=== PATIENT | female | born 2000 | race Caucasian/White ===

== ENCOUNTER 2023-05-08 15:20 | Emergency (ER) | payer MEDICAID, SELFPAY ==
[2023-05-08 16:04] VITALS: BP 121/85; PULSE 74; RESP 16; TEMP 36.7; O2SAT 97; BMI 14.8
[2023-05-08 16:50] VITALS: BP 113/67; PULSE 72; RESP 16; O2SAT 94
[2023-05-08 17:01] LABS: Basophils # 0.1 10^3/uL (0.0-0.1); Basophils % 0.6 %; Hematocrit 41.4 % (37.0-47.0); Mean Corpuscular HGB Conc 33.8 g/dL (30.0-36.0); Mean Corpuscular Hemoglobin 29.7 pg (28.0-34.0); Mean Corpuscular Volume 87.7 fl (81-99); Mean Platelet Volume 10.4 fL (7.4-10.4); Monocytes # 0.2 10^3/uL (0.2-0.9); Monocytes % 2.1 %; Neutrophils # 7.64 10^3/uL (1.8-7.7); Neutrophils % 86.2 %; Nucleated Red Blood Cells % 0 %; Platelet Count 281 10^3/cmm (130-400); Red Blood Count 4.72 10^6/uL (4.1-5.3); Red Cell Distribution Width 11.2 % (12.1-15.1); White Blood Count 8.9 10^3/uL (4.0-10.0)
--- NOTE | 2023-05-08 17:16 | W.ED.ABDPA2 ---
HPI - Abdominal Pain General: Chief Complaint: Abdominal Pain Stated Complaint: n/v Time Seen by Provider: 05/08/23 16:32 History of Present Illness: Patient presents to the ER with complaints of nausea vomiting abdominal pain for the last 2 days. Patient is not currently vomiting at this time. Patient has done this multiple times. And goes downhill really quickly. Patient does not have much reserve. Patient does not talk or answer questions and all the history was obtained from her father. Patient does have thyroid issues and she is undergoing diagnosis and treatment for them. Review of Systems General: Reports: 10 or more systems reviewed and unremarkable except in HPI and below PFSH ED PFSH: Family History Denies family history of Diabetes Cancer Hypertension Stroke Social History Smoking and tobacco status: never smoked Physical Exam Const: COMMON NORMALS: no acute distress, average body habitus, patient oriented x3, no limitations, healthy appearing, alert and well nourished HENMT: COMMON NORMALS: normocephalic, atraumatic, hearing grossly normal bilaterally, external ears normal, Normal external nose present and moist oral mucous membranes HEAD & SCALP: normocephalic and atraumatic NOSE: Normal external nose present EXTERNAL EAR: Yes external ears normal Eye: COMMON NORMALS: Equal, round and reactive pupils present, EOMs intact bilaterally, conjunctivae normal and no scleral icterus CONJUNCTIVA: Yes conjunctivae normal PUPIL: Yes Equal, round and reactive pupils present Neck/C-Spine: COMMON NORMALS: full ROM, no lymphadenopathy, supple, no meningeal signs, no JVD and Thyroid normal THYROID: Thyroid normal Chest: COMMONS NORMALS: normal inspection of the chest and normal palpation of entire chest wall Resp: COMMON NORMALS: normal respiratory effort, No retractions, No use of accessory muscles and clear to auscultation bilaterally AUSCULTATION: clear to auscultation bilaterally Cardio: COMMON NORMALS: no JVD, regular rate, regular rhythm, S1 normal heart sound present, S2 normal heart sound present, No gallops present (Cardio), No clicks present (Cardio), No murmurs present (Cardio) and No rub (Cardio) RATE: regular rate RHYTHM: regular rhythm HEART SOUNDS: S1 normal heart sound present and S2 normal heart sound present GI: COMMON NORMALS: Normal to inspection, nondistended, normoactive bowel sounds present, Soft to palpation, non-tender, No hepatosplenomegaly present and no masses PALPATION: Yes Soft to palpation and Yes No hepatosplenomegaly present Neuro: COMMON NORMALS: patient oriented x3 SENSORIUM/ORIENTATION: Yes alert MENINGEAL SIGNS: Yes no meningeal signs Course Vital Signs: Vital signs: Vital Signs Temperature 98.0 F 05/08/23 16:04 Pulse Rate 83 05/08/23 18:26 Respiratory Rate 16 05/08/23 18:26 Blood Pressure 105/77 05/08/23 18:26 Pulse Oximetry 98 05/08/23 18:26 Oxygen Delivery Me thod Room Air 05/08/23 18:26 MDM - Abdominal Pain Medical Decision Making Presents to the ER with complaints of nausea vomiting for 2 days. Patient gets this every so often. Patient was given a liter of fluid and 4 Zofran while waiting for lab work to come back which was essentially benign. Much better and is ready to go home. Patient be discharged home to follow-up with her PCP on an as-needed basis. Differential Diagnosis Likely abdominal pain and gastroenteritis; Unlikely acute appendicitis, calculus of kidney, constipation, diverticulitis, endometriosis, pancreatitis or small bowel obstruction Medical Records I reviewed the patient's medical records. Lab Data I reviewed the patient's lab results. 05/08/23 16:54 05/08/23 16:54 Labs/Radiology: Laboratory Results WBC 8.9 10^3/uL (4.0-10.0) 05/08/23 16:54 RBC 4.72 10^6/uL (4.1-5.3) 05/08/23 16:54 Hgb 14.0 g/dL (11.5-15.3) 05/08/23 16:54 Hct 41.4 % (37.0-47.0) 05/08/23 16:54 MCV 87.7 fl (81-99) 05/08/23 16:54 MCH 29.7 pg (28.0-34.0) 05/08/23 16:54 MCHC 33.8 g/dL (30.0-36.0) 05/08/23 16:54 RDW 11.2 % (12.1-15.1) L 05/08/23 16:54 Plt Count 281 10^3/cmm (130-400) 05/08/23 16:54 MPV 10.4 fL (7.4-10.4) 05/08/23 16:54 Neut % (Auto) 86.2 % 05/08/23 16:54 Lymph % (Auto) 11.0 % 05/08/23 16:54 [place] % (Auto) 2.1 % 05/08/23 16:54 Eos % (Auto) 0.0 % 05/08/23 16:54 Baso % (Auto) 0.6 % 05/08/23 16:54 Neut # (Auto) 7.64 10^3/uL (1.8-7.7) 05/08/23 16:54 Lymph # (Auto) 1.0 10^3/uL (0.8-4.8) 05/08/23 16:54 [place] # (Auto) 0.2 10^3/uL (0.2-0.9) 05/08/23 16:54 Eos # (Auto) 0.0 10^3/uL (0.0-0.8) 05/08/23 16:54 Baso # (Auto) 0.1 10^3/uL (0.0-0.1) 05/08/23 16:54 Nucleated RBC % (auto) 0 % 05/08/23 16:54 Nucleated RBCs # 0.0 /100WBC 05/08/23 16:54 Sodium 133 mmol/L (136-145) L 05/08/23 16:54 Potassium 3.6 mmol/L (3.5-5.1) 05/08/23 16:54 Chloride 100 mmol/L (98-107) 05/08/23 16:54 Carbon Dioxide 25 mmol/L (22-29) 05/08/23 16:54 Anion Gap 11.6 (5-19) 05/08/23 16:54 BUN 6 mg/dL (6-20) 05/08/23 16:54 Creatinine 0.8 mg/dL (0.5-0.9) 05/08/23 16:54 GFR Calculation 89.7 mL/min (90-130) L 05/08/23 16:54 Glucose 98 mg/dL (65-115) 05/08/23 16:54 Calculated Osmolality 274 mOsm/kg (285-295) L 05/08/23 16:54 Calcium 9.0 mg/dL (8.5-10.5) 05/08/23 16:54 Magnesium 2.1 mg/dL (1.7-2.3) 05/08/23 16:54 Total Bilirubin 0.3 mg/dL (0.15-1.2) 05/08/23 16:54 AST 14 U/L (0-32) 05/08/23 16:54 ALT 10 U/L (0-33) 05/08/23 16:54 Alkaline Phosphatase 67 U/L (35-105) 05/08/23 16:54 Total Protein 7.4 g/dL (6.6-8.7) 05/08/23 16:54 Albumin 4.5 g/dL (3.5-5.2) 05/08/23 16:54 Globulin 2.9 g/dL (1.3-4.6) 05/08/23 16:54 Lipase 19 U/L (13-60) 05/08/23 16:54 Discharge Plan Discharge Patient Disposition: Home Clinical Impression: Acute nausea with nonbilious vomiting Condition: Stable Prescriptions: No Action levothyroxine [Synthroid] 25 mcg tablet 25 mcg PO DAILY Discharge Orders: Discharge ED (Routine); Ordered 05/08/23 Ordered By: Danny Herrera Referrals: Melissa Cameron MD [Primary Care Provider] - 1 week Patient Instructions: Acute Nausea and Vomiting (ED) Activity Restrictions/Additional Instructions: Please start off with clear liquids and advance diet slowly as tolerated. Please follow-up with family practice doctor in approximately 1 week or sooner as needed. Coding Level of Care Code ED Skirt Maker for Kathie Cook
[2023-05-08] MEDS: sodium chloride 0.9% 1,000 ML 999 ML IV (17:20)
[2023-05-08] MEDS: ondansetron 2 mg/ML SDV 2 mL 4 MG IVP (17:20)
[2023-05-08 17:26] LABS: Alanine Aminotransferase 10 U/L (0-33); Albumin Level 4.5 g/dL (3.5-5.2); Alkaline Phosphatase 67 U/L (35-105); Anion Gap 11.6 (5-19); Aspartate Amino Transferase 14 U/L (0-32); Blood Urea Nitrogen 6 mg/dL (6-20); Carbon Dioxide 25 mmol/L (22-29); Chloride 100 mmol/L (98-107); Globulin 2.9 g/dL (1.3-4.6); Glomerular Filtration Rate 89.7 mL/min (90-130); Glucose 98 mg/dL (65-115); Lipase 19 U/L (13-60); Magnesium 2.1 mg/dL (1.7-2.3); Osmolality Calculated 274 mOsm/kg (285-295); Potassium 3.6 mmol/L (3.5-5.1); Sodium 133 mmol/L (136-145); Total Bilirubin 0.3 mg/dL (0.15-1.2); Total Protein 7.4 g/dL (6.6-8.7)
[2023-05-08 18:26] VITALS: BP 105/77; PULSE 83; RESP 16; O2SAT 98
== END 2023-05-08 19:14 | disposition home or self-care (01) ==
PROVIDERS: Emergency Provider Emergency Medicine; PCP Family Medicine
DX: R11.2 Nausea with vomiting, unspecified (principal)
CPT/HCPCS: 36415; 80053; 83690; 83735; 85025; 96374; 99284; J2405; J7030

== ENCOUNTER 2023-06-23 15:34 | Outpatient (CLI) | payer MEDICAID, SELFPAY ==
--- NOTE | 2023-06-23 16:00 | MR_ITS ---
WS: [id number] MR CERVICAL SPINE WO/W DATE OF EXAMINATION: 06/22/2023 COMPARISON: None. HISTORY: Epilepsy neck pain TECHNIQUE: Sagittal T1, T2 and T2 inversion recovery; axial T2, T2 gradient and fiesta. Post gadolini um imaging with fat saturation technique. FINDINGS:Straightening with slight reversal normal cervical lordosis. No high grade central canal lennox rowing. Cord signal is normal. No abnormal gadolinium enhancement C2-3: Mild left eccentric disc osteophytic ridging. Mild left foraminal narrowing. Spinal canal and r ight foramen are patent. C3-4: Left eccentric disc osteophytic ridging. Mild left foraminal narrowing. Moderate facet arthropa thy. C4-5: Mild left eccentric disc osteophytic ridging. Mild left foraminal narrowing. Moderate facet art hropathy. C5-6: Tiny central disc protrusion. Mild disc osteophytic ridging. Mild left bony foraminal narrowing . Spinal canal is patent. C6-7: Mild left bony foraminal narrowing. Moderate facet arthropathy. C7-T1: Spinal canal and foramen are patent. IMPRESSION: 1. Straightening with slight reversal of the normal cervical lordosis. No high-grade central canal narrowing. Cord signal is normal. 2. Small shallow central protrusion at C5-C6 with slight effacement of the ventral thecal sac. Mild left bony foraminal narrowing at this level. 3. Mild left bony foraminal narrowing at left C2-3, left C3-4, left C4-5, left C5-6, and left C6-7.
[2023-06-23] MEDS: gadobenate dimeglumine 20 mL vial IV (16:43)
== END 2023-06-23 15:35 | disposition home or self-care (01) ==
LOC: RAD 15:34
PROVIDERS: PCP Family Medicine; Visit Provider Specialist
DX: R29.90 Unspecified symptoms and signs involving the nervous system (principal); Z82.0 Family history of epilepsy and other diseases of the nervous system; M50.222 Other cervical disc displacement at C5-C6 level; M48.02 Spinal stenosis, cervical region; G40.909 Epilepsy, unspecified, not intractable, without status epilepticus
CPT/HCPCS: 72156; A9577

== ENCOUNTER 2023-07-06 08:30 | Outpatient (CLI) | payer MEDICAID, SELFPAY ==
--- NOTE | 2023-07-06 08:45 | MR_ITS ---
WS: [id number] MRI HEAD WITH CONTRAST TECHNIQUE: Sagittal T1, T2 axial, T2 axial FLAIR, axial susceptibility weighted imaging, axial diffus ion weighted images, and coronal T2 images were obtained. Pre and post-T1 axial and post T1 coronal i mages. ADC and FSPGR images. CLINICAL INFORMATION: Z82.0 - Family history of epilepsy and other diseases of ... COMPARISON: None. FINDINGS: No evidence of restricted diffusion to suggest acute ischemia. Ventricular system and basal cisterns are patent. Few patchy supratentorial periventricular white matter changes more prominent about the L EFT lateral ventricle and LEFT occipital horn. Normal posterior fossa. Normal vascular flow voids at the skull base. No extra-axial fluid collections. No evidence of mass or mass effect. Paranasal sinuses and mastoid air cells are well aerated. Normal posterior nasopharynx and parapharyn geal fat. No hemosiderin on the susceptibility weighted images. Normal optic chiasm and pituitary inf undibulum. Temporal lobes hippocampal formations are normal in appearance. Normal optic chiasm and pi tuitary infundibulum. No signal abnormalities in the mesial temporal lobes. No abnormal gadolinium enhancement. No enhancing intracranial lesions. Tiny incidental 2.5 mm pituita ry cyst or Rathke's cleft cyst at the infundibular insertion. No other suspicious findings. IMPRESSION: 1. No evidence of restricted diffusion to suggest acute ischemia. 2. Minimal patchy periventricular white matter changes more prominent on the LEFT nonspecific in a p atient this age but can be seen with hypertension, diabetes, migraine headaches. 3. No abnormal gadolinium enhancement. 4. No hemosiderin on the susceptibility weighted images. 5. Temporal lobes and hippocampal formations are normal in appearance. 6. Tiny incidental 2.5 mm pituitary cyst or Rathke's cleft cyst at the infundibular insertion. 7. No other suspicious findings.
[2023-07-06] MEDS: gadobenate dimeglumine 20 mL vial IV (10:00)
== END 2023-07-06 08:31 | disposition home or self-care (01) ==
PROVIDERS: PCP Family Medicine; Visit Provider Specialist
DX: R29.90 Unspecified symptoms and signs involving the nervous system (principal); Z82.0 Family history of epilepsy and other diseases of the nervous system
CPT/HCPCS: 70553; A9577

== ENCOUNTER → 2023-08-04 09:15 | Outpatient (BNVA) | payer MEDICAID, SELFPAY | PROVIDERS: PCP Family Medicine; Referring Provider Psychiatry & Neurology Neurology; Visit Provider Internal Medicine | DX: E03.9 Hypothyroidism, unspecified (principal); R13.10 Dysphagia, unspecified; R29.90 Unspecified symptoms and signs involving the nervous system; Z82.0 Family history of epilepsy and other diseases of the nervous system; Z79.899 Other long term (current) drug therapy | CPT/HCPCS: 36415; 82306; 82607; 82746; 83735; 83921; 84207; 84425; 84439; 84443; 86376; 86800 ==

== ENCOUNTER 2023-09-07 14:46 | Emergency (ER) | payer MEDICAID, SELFPAY ==
[2023-09-07 15:00] VITALS: BP 107/74; PULSE 75; RESP 18; TEMP 36.4; O2SAT 100; BMI 14.6
--- NOTE | 2023-09-07 17:01 | ED_ITS ---
HPI - Neck Pain/Injury General: Chief Complaint: Neck Pain/Injury Stated Complaint: neck pain Time Seen by Provider: 09/07/23 16:41 Source: patient Mode of arrival: ambulatory History of Present Illness: 23-year-old female comes in complaining of right anterior neck pain. This been going on for several years she had multiple work-ups by primary care and neurology orthopedics and now has an upcoming work-up with endocrinology. She has history of hypothyroidism she is on Synthroid no recent change in medications no recent trauma or pain. Localizes pain at the level of the larynx on the right side. She has full range of motion her neck does not seem to aggravate it. Father is with the patient in the room states it was causing significantly more pain earlier today. No radiation of the pain into the head or into the upper extremities. MD complaint: neck pain Onset (ago): year(s) Place: home Quality: sharp Duration: intermittent Relieving factors: none Exacerbating factors: none Associated symptoms: Denies dysphagia, difficulty walking, dizziness, fevers/chills, headache(s), nausea, swollen glands, tingling or weakness Review of Systems Const: Denies: fever(s) or chills Card: Denies: chest pain Resp: Denies: dyspnea GI: Denies: nausea or dysphagia Musc: Denies: neck pain or back pain Skin/Breast: Denies: rash Neuro: Denies: headache(s), difficulty walking or dizziness PFSH ED PFSH: Medical History History of esophageal stricture Hypothyroidism Surgical History No history of previous surgery Family History Mother [place]'s chorea Denies family history of Diabetes Cancer Hypertension Stroke Social History Smoking and tobacco/nicotine status: never used tobacco/nicotine Alcohol intake: never Substance/Drug Use: never Household members: family Marital status: Single Number of children: 0 Current occupational status: unemployed Leisure activites: games Snow/Worship: Religion Special snow needs: No Agree to transfusion: Yes Physical Exam Const: COMMON NORMALS: no acute distress GENERAL APPEARANCE: cooperative and comfortable ORIENTATION/CONSCIOUSNESS: Yes awake, Yes oriented to person, Yes oriented to place and Yes oriented to time HENMT: COMMON NORMALS: normocephalic, atraumatic and hearing grossly normal bilaterally HEAD & SCALP: normocephalic and atraumatic Resp: COMMON NORMALS: normal respiratory effort, No retractions, No use of accessory muscles and clear to auscultation bilaterally AUSCULTATION: clear to auscultation bilaterally Cardio: COMMON NORMALS: regular rate, regular rhythm and No murmurs present (Cardio) RATE: regular rate RHYTHM: regular rhythm Extremity: COMMON NORMALS: normal to inspection, capillary refill normal, no clubbing, cyanosis or edema, no calf tenderness and no pedal edema Neuro: SENSORIUM/ORIENTATION: Yes oriented to person, Yes oriented to place and Yes oriented to time Skin: COMMON NORMALS: no rashes or lesions noted GENERAL SKIN EXAM: no rashes or lesions noted Course Vital Signs: Vital signs: Vital Signs Temperature 97.6 F 09/07/23 15:00 Pulse Rate 75 09/07/23 15:00 Respiratory Rate 18 09/07/23 15:00 Blood Pressure 107/74 09/07/23 15:00 Pulse Oximetry 100 09/07/23 15:00 Oxygen Delivery Me thod Room Air 09/07/23 15:00 MDM - Neck Pain/Injury Medical Decision Making Unable to reproduce pain with range of motion or palpation she has no stridor no injury. Cervical spine clears clinically at the bedside. Discharge patient home with diclofenac to use as needed. Follow-up with primary care or other work-ups as are pending. Medical Records I reviewed the patient's medical records. Lab Data I reviewed the patient's lab results. No radiology studies performed this visit Discharge Plan Discharge Patient Disposition: Home Clinical Impression: Neck pain Condition: Stable Prescriptions: New diclofenac sodium 75 mg tablet,delayed release (DR/EC) 75 mg PO Q12H PRN (Reason: pain) Qty: 20 0RF No Action levothyroxine [Synthroid] 25 mcg tablet 25 mcg PO DAILY Qty: 90 0RF Discharge Orders: Discharge ED (Routine); Ordered 09/07/23 Ordered By: Isrrael Hendrickson Referrals: Melissa Cameron MD [Primary Care Provider] - Discharge Diet: Usual diet Discharge Activity: Increase activity as tolerated Patient Instructions: Opioid Safety, Pain Management Activity Restrictions/Additional Instructions: Thank you for choosing [facility] for your healthcare needs today. Please realize this is an emergency room and that we are providing you with a medical screening exam and this may not be complete and all inclusive of all the testing and or work up that you may need to determine your ailment or severity of your illness. It is very important that you follow up as instructed or that you return to the Emergency Department should you have concerns or if your condition changes or worsens in any way. Follow-up with other outpatient testing as previously scheduled. Coding Level of Care Code ED Echocardiography Radiology Technologist for Kathie Cook
[2023-09-07] MEDS: dexamethasone 10 mg/mL INJ IM (17:16)
[2023-09-07] MEDS: ketorolac 30 mg/mL INJ IM (17:17)
== END 2023-09-07 17:42 | disposition home or self-care (01) ==
PROVIDERS: Emergency Provider Family Medicine; PCP Family Medicine
DX: M54.2 Cervicalgia (principal)
CPT/HCPCS: 96372; 99284; J1100; J1885

== ENCOUNTER 2023-09-10 16:27 | Outpatient (CLI) | payer MEDICAID, SELFPAY ==
--- NOTE | 2023-09-10 17:00 | USR_ITS ---
PROCEDURE INFORMATION: Exam: US Soft Tissue Head and Neck, Thyroid Exam date and time: 09/10/2023 5:14 PM Age: 23 years old Clinical indication: Dysphagia / difficulty swallowing; Additional info: Hypothyroidism dysphagia TECHNIQUE: Imaging protocol: Real-time ultrasound scan of the neck with image documentation. Exam focused on the thyroid. COMPARISON: MR cervical spine wo/w [id number] 06/23/2023 4:07 PM FINDINGS: Right thyroid lobe: Normal size and echotexture without hyperemia or nodule, measuring 1.2 x 0.9 x 3.3 cm. Left thyroid lobe: Normal size and echotexture without hyperemia or nodule, measuring 1.1 x 0.8 x 2.4 cm. Isthmus: No nodules. Measures 0.2 cm in thickness. US/US thyroid [id number] IMPRESSION: Unremarkable thyroid.
== END 2023-09-10 16:28 | disposition home or self-care (01) ==
PROVIDERS: PCP Family Medicine; Visit Provider Internal Medicine
DX: E03.9 Hypothyroidism, unspecified (principal); R13.10 Dysphagia, unspecified
CPT/HCPCS: 76536

== ENCOUNTER 2024-02-23 05:36 | Day surgery (SDC) | payer MEDICAID, SELFPAY ==
[2024-02-23 06:10] VITALS: BP 114/70; PULSE 77; RESP 18; TEMP 36.7; O2SAT 99; BMI 15.5
[2024-02-23] MEDS: sodium chloride 0.9% 1,000 ML 30 ML IV (06:25)
--- NOTE | 2024-02-23 06:45 | ANES.PREANE2 ---
Pre-Anesthetic Assessment Height/Weight: Height 1.57 m Weight 38.555 kg Temp Pulse Resp BP Pulse Ox O2 Del Method 98.1 F 77 18 114/70 99 Room Air 02/23/24 06:10 02/23/24 06:10 02/23/24 06:10 02/23/24 06:10 02/23/24 06:10 02/23/24 06:10 Preop Diagnosis: dysphagia Operation Date: 02/23/24 07:00 Proposed Procedures p [id number] egd w/sarika R13.10(Not Applicable) - Jose Miguel Ryan, DO Was Beta Phillip taken within 24 hours: N/A Was Clonidine taken within 24 hours: N/A Last intake: Intake Last Liquid Date 02/22/24 Last Liquid Time 22:00 Last Solid Date 02/22/24 Last Solid Time 22:00 Social No alcohol and No tobacco Exam alert, oriented x 3, clear to auscultation bilaterally and regular rate & rhythm Airway Submandibular: within normal limits Cervical ROM: within normal limits Mallampati: Class II History/ROS No significant history except as noted and No significant complaints Pulmonary None reported CV/HEM None reported None reported Hepatic None reported GI None reported no reflux Metabolic Thyroid Disease Musc/skel Lower Back Pain upper nad lower back pain, full ROM Neuropsych huntingtons disease Anesthetic Plan ASA status: 2 Anesthesia: MAC Risk of > 500 ml blood loss (7ml/kg in children): Yes, adequate IV access and fluids planned Medications/Allergies Home Medications Medication Instructions Recorded Confirmed Last Taken Type levothyroxine 25 mcg tablet 25 mcg PO DAILY 02/23/24 02/23/24 02/23/24 History (Synthroid) Allergies Allergy/AdvReac Type Severity Reaction Status Date / Time No Known Allergies Allergy Verified 02/23/24 06:08 Current Medications Generic Name Dose Route Start Last Admin Trade Name Freq PRN Reason Stop Dose Admin Sodium Chloride 1,000 mls @ 30 mls/hr 02/23/24 06:00 02/23/24 06:25 Sodium Chloride 0.9% IV 02/24/24 05:59 30 mls/hr .Q24H GOSIA Administration PFSH Anesthesia Medical History Depressed Family history of [place]'s disease Hypothyroidism History of esophageal stricture Surgical History No history of previous surgery Family History Mother Nican[place]'s chorea Denies family history of Diabetes Cancer Hypertension Stroke Social History Smoking and tobacco/nicotine status: never used tobacco/nicotine Alcohol intake: never Substance/Drug Use: never Household members: family Marital status: Single Number of children: 0 Current occupational status: unemployed Leisure activites: [employer] Snow/Mormonism: Voodoo Special snow needs: No Agree to transfusion: Yes Data Anesthesia Cardiac Studies: No Data to Display
[2024-02-23 06:50] LABS: HCG, Serum Qual Negative (Negative)
--- NOTE | 2024-02-23 07:05 | P.HP_ITS ---
Providers/Chief Complaint Primary Care Provider: Melissa Cameron MD Chief Complaint: R13.10 History of Present Illness Leslie Smith is a 23 year old female Review of Systems General: Reports: 10 or more systems reviewed and unremarkable except in HPI and below Medications/Allergies Home Medications Medication Instructions Recorded Confirmed Last Taken Type levothyroxine 25 mcg tablet 25 mcg PO DAILY 02/23/24 02/23/24 02/23/24 History (Synthroid) Allergies Allergy/AdvReac Type Severity Reaction Status Date / Time No Known Allergies Allergy Verified 02/23/24 06:08 PFSH Acute PFSH: Medical History Depressed Family history of [place]'s disease Hypothyroidism History of esophageal stricture Surgical History No history of previous surgery Family History Mother [place]'s chorea Denies family history of Diabetes Cancer Hypertension Stroke Social History Smoking and tobacco/nicotine status: never used tobacco/nicotine Alcohol intake: never Substance/Drug Use: never Household members: family Marital status: Single Number of children: 0 Current occupational status: unemployed Leisure activites: [employer] Snow/Scientology: Mormon Special snow needs: No Agree to transfusion: Yes Vitals/I&O/Wt Last Vital Signs Temp 98.1 F 02/23/24 06:10 Pulse 77 02/23/24 06:10 Resp 18 02/23/24 06:10 BP 114/70 02/23/24 06:10 Pulse Ox 99 02/23/24 06:10 O2 Del Method Room Air 02/23/24 06:10 Weight last 48 hrs Weight 85 lb A&P Assessment and plan (1) Dysphagia: Plan EGD with possible balloon dilation Attestations Medical Necessity Statement*: Home Coding Level of Care Code Acute Code for Chg Fwd Diagnoses Dysphagia R13.10
[2024-02-23 07:23] VITALS: BP 91/49; PULSE 78; RESP 14; TEMP 36.3; O2SAT 94
[2024-02-23 07:48] VITALS: BP 95/66; PULSE 73; RESP 16; O2SAT 100
--- NOTE | 2024-02-23 14:02 | ANE.PACU2 ---
Inpatient post-anesthesia follow up: Vital signs: Temperature 97.3 F Pulse Rate 73 Respiratory Rate 16 Blood Pressure 95/66 Pulse Oximetry 100 Oxygen Delivery Me thod Room Air Oxygen Flow Rate 2 Fraction of Inspir ed Oxygen Hydration adequate: Yes Nausea and vomiting: No Mental status: Baseline Additional Comments: no apparent anesthetic complications noted
== END 2024-02-23 08:10 | disposition home or self-care (01) ==
PROVIDERS: Anesthesiology; PCP Family Medicine; Visit Provider Surgery
DX: R13.10 Dysphagia, unspecified (principal); E03.9 Hypothyroidism, unspecified; Z87.19 Personal history of other diseases of the digestive system
CPT/HCPCS: 36415; 43239; 43249; 84703; 88305; J2704; J3010; J7030

== ENCOUNTER 2024-06-16 05:16 | Emergency (ER) | payer MEDICAID, SELFPAY ==
[2024-06-16] VITALS (7 sets, daily range): BP systolic 91–112; BP diastolic 61–87; PULSE 61–86; RESP 16; TEMP 36.7; O2SAT 97–100; BMI 15.5
--- NOTE | 2024-06-16 05:24 | XRR_ITS ---
PROCEDURE INFORMATION: Exam: XR Abdomen Exam date and time: 06/16/2024 6:32 AM Age: 24 years old Clinical indication: Abdominal pain; Localized; Left lower quadrant (llq); Additional info: Llq abd pain, HX of constipation TECHNIQUE: Imaging protocol: Radiologic exam of the abdomen. Views: Frontal supine view of the abdomen. 1 View. COMPARISON: No relevant prior studies available. FINDINGS: Gastrointestinal tract: [id number] colonic stool burden. 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 Hypoplastic T12 ribs are noted. XR/XR abdomen 1V* [id number] IMPRESSION: No acute findings with the above details.
--- NOTE | 2024-06-16 05:28 | ED_ITS ---
Documented by User: Danny Herrera DO 06/16/24 05:31 HPI - Abdominal Pain 2 General: Chief Complaint: Abdominal Pain Stated Complaint: low left abd pain n/v dizzy 2+days Time Seen by Provider: 06/16/24 05:20 History of Present Illness: Patient presents to the ER with a history of about a 2-day history of left lower quadrant abdominal pain. This has caused some nausea and vomiting. Patient denies any fevers or abdominal surgical history. Patient does have a history of constipation and cannot tell us when that her last bowel movement was. Patient is very quiet dad does most of the talking. Review of Systems 2 General: Reports: 10 or more systems reviewed and unremarkable except in HPI and below PFSH ED 2 PFSH: Medical History Depressed Family history of Nicanor's disease Hypothyroidism History of esophageal stricture Surgical History No history of previous surgery Family History Mother [place]'s chorea Denies family history of Diabetes Cancer Hypertension Stroke Social History Smoking and tobacco/nicotine status: never used tobacco/nicotine Alcohol intake: never Substance/Drug Use: never Household members: family Marital status: Single Number of children: 0 Current occupational status: unemployed Leisure activites: uniRow Snow/Faith: Holiness Special snow needs: No Agree to transfusion: Yes Physical Exam 2 Const: COMMON NORMALS: no acute distress, average body habitus, patient oriented x3, no limitations, healthy appearing, alert and well nourished HENMT: COMMON NORMALS: normocephalic, atraumatic, hearing grossly normal bilaterally, external ears normal, Normal external nose present and moist oral mucous membranes HEAD & SCALP: normocephalic and atraumatic NOSE: Normal external nose present EXTERNAL EAR: Yes external ears normal Neck/C-Spine: COMMON NORMALS: no JVD Chest: COMMONS NORMALS: normal inspection of the chest and normal palpation of entire chest wall Resp: COMMON NORMALS: normal respiratory effort, No retractions, No use of accessory muscles and clear to auscultation bilaterally AUSCULTATION: clear to auscultation bilaterally Cardio: COMMON NORMALS: no JVD, regular rate, regular rhythm, S1 normal heart sound present, S2 normal heart sound present, No gallops present (Cardio), No clicks present (Cardio), No murmurs present (Cardio) and No rub (Cardio) R ATE: regular rate RHYTHM: regular rhythm HEART SOUNDS: S1 normal heart sound present and S2 normal heart sound present GI: COMMON NORMALS: Normal to inspection, nondistended, normoactive bowel sounds present, Soft to palpation, No hepatosplenomegaly present and no masses; negative for non-tender (Tender to palpate over left lower quadrant,) P ALPATION: Yes Soft to palpation and Yes No hepatosplenomegaly present OTHER: No rebound guarding or rigidity Neuro: COMMON NORMALS: patient oriented x3 SENSORIUM/ORIENTATION: Yes alert Course 2 Vital Signs: Vital signs: Vital Signs Temperature 98.1 F 06/16/24 05:21 Pulse Rate 61 06/16/24 06:24 Respiratory Rate 16 06/16/24 05:21 Blood Pressure 99/73 06/16/24 08:00 Pulse Oximetry 100 06/16/24 09:00 Oxygen Delivery Me thod Room Air 06/16/24 06:24 MDM - Abdominal Pain Differential Diagnosis Likely abdominal pain and constipation Lab Data I reviewed the patient's lab results. 06/16/24 05:58 06/16/24 05:58 Labs/Radiology: Radiology Impressions Abdomen X-Ray 06/16/24 05:24 IMPRESSION: No acute findings with the above details. Abdomen/Pelvis CT 06/16/24 08:04 IMPRESSION: 1. No acute findings. 2. Moderate to severe colonic stool burden with fecalization of small bowel which can be seen in slow transit. Laboratory Results WBC 10.06 10^3/uL (3.29-11.43) 06/16/24 05:58 RBC 4.80 10^6/uL (3.85-5.65) 06/16/24 05:58 Hgb 14.30 g/dL (11.27-16.99) 06/16/24 05:58 Hct 43.7 % (36-47) 06/16/24 05:58 MCV 91.0 fl (85-98) 06/16/24 05:58 MCH 29.8 pg (27-33) 06/16/24 05:58 MCHC 32.7 g/dL (30-55) 06/16/24 05:58 RDW 11.3 % (12.1-15.1) L 06/16/24 05:58 Plt Count 319 10^3/cmm (157-399) 06/16/24 05:58 MPV 10.6 fL (7.4-10.4) H 06/16/24 05:58 Neut % (Auto) 82.8 % 06/16/24 05:58 Lymph % (Auto) 12.9 % 06/16/24 05:58 Holt % (Auto) 3.1 % 06/16/24 05:58 Eos % (Auto) 0.4 % 06/16/24 05:58 Baso % (Auto) 0.6 % 06/16/24 05:58 Neut # (Auto) 8.33 10^3/uL (1.8-7.7) H 06/16/24 05:58 Lymph # (Auto) 1.3 10^3/uL (0.8-4.8) 06/16/24 05:58 Holt # (Auto) 0.3 10^3/uL (0.2-0.9) 06/16/24 05:58 Eos # (Auto) 0.0 10^3/uL (0.0-0.8) 06/16/24 05:58 Baso # (Auto) 0.1 10^3/uL (0.0-0.1) 06/16/24 05:58 Nucleated RBC % (auto) 0 % 06/16/24 05:58 Nucleated RBCs # 0.0 /100WBC 06/16/24 05:58 Sodium 140 mmol/L (136-145) 06/16/24 05:58 Potassium 4.5 mmol/L (3.5-5.1) 06/16/24 05:58 Chloride 104 mmol/L (98-107) 06/16/24 05:58 Carbon Dioxide 23 mmol/L (22-29) 06/16/24 05:58 Anion Gap 17.5 (5-19) 06/16/24 05:58 BUN 12 mg/dL (6-20) 06/16/24 05:58 Creatinine 1.0 mg/dL (0.5-0.9) H 06/16/24 05:58 GFR Calculation 68.1 mL/min (90-130) L 06/16/24 05:58 Glucose 105 mg/dL (65-115) 06/16/24 05:58 Calculated Osmolality 290 mOsm/kg (285-295) 06/16/24 05:58 Calcium 8.9 mg/dL (8.5-10.5) 06/16/24 05:58 Magnesium 2.2 mg/dL (1.7-2.3) 06/16/24 05:58 Total Bilirubin 0.3 mg/dL (0.15-1.2) 06/16/24 05:58 AST 13 U/L (0-32) 06/16/24 05:58 ALT 9 U/L (0-33) 06/16/24 05:58 Alkaline Phosphatase 75 U/L (35-105) 06/16/24 05:58 Total Protein 7.8 g/dL (6.6-8.7) 06/16/24 05:58 Albumin 4.4 g/dL (3.5-5.2) 06/16/24 05:58 Globulin 3.4 g/dL (1.3-4.6) 06/16/24 05:58 HCG, Qual Negative (Negative) 06/16/24 05:50 Urine Color Dark yellow (Yellow) A 06/16/24 05:50 Urine Appearance Clear (CLEAR) 06/16/24 05:50 Urine pH 5.0 (5-7) 06/16/24 05:50 Ur Specific [place] 1.022 (1.005-1.030) 06/16/24 05:50 Urine Protein Trace (Negative) A 06/16/24 05:50 Urine Glucose (UA) Negative (Normal) 06/16/24 05:50 Urine Ketones Trace (Negative) 06/16/24 05:50 Urine Blood 3+ (Negative) A 06/16/24 05:50 Urine Nitrate Negative (Negative) 06/16/24 05:50 Urine Bilirubin Negative (Negative) 06/16/24 05:50 Urine Urobilinogen 1.0 mg/dL (Negative) 06/16/24 05:50 Ur Leukocyte Esterase Negative (Negative) 06/16/24 05:50 Urine RBC 6-10 /hpf (0-2) 06/16/24 05:50 Urine WBC 6-10 /hpf (0-5) 06/16/24 05:50 Ur Squamous Epith Cells 21-50 /hpf (0-5) 06/16/24 05:50 Amorphous Sediment Not Reportable 06/16/24 05:50 Urine Bacteria Trace /hpf (NONE) 06/16/24 05:50 Hyaline Casts 2.87 /lpf 06/16/24 05:50 All radiology interpretation(s) finalized by discharge Discharge Plan Discharge Patient Disposition: Home Clinical Impression: Constipation Condition: Stable Prescriptions: New Miralax 17 gram/dose powder 8.5 g PO BID Qty: 850 0RF Constulose 10 gram/15 mL solution 20 g PO Q2H 1 Days Qty: 360 0RF Rx Instructions: until desired laxative effect No Action Synthroid 25 mcg tablet 25 mcg PO DAILY Qty: 90 0RF Discharge Orders: Discharge ED (Routine); Ordered 06/16/24 Ordered By: Isrrael Hendrickson Referrals: Melissa Cameron MD [Primary Care Provider] - Discharge Diet: Usual diet Discharge Activity: Increase activity as tolerated Patient Instructions: Constipation (ED), Opioid Safety, Pain Management Activity Restrictions/Additional Instructions: Thank you for choosing [facility] for your healthcare needs today. It is very important that you follow up as instructed or that you return to the Emergency Department should you have concerns or if your condition changes or worsens in any way. Sign Out Sign Out Data: Patient Sign Out occurred on 06/16/24 at 06:24. Patient's care was discussed, and care was transferred from Danny Herrera DO to Isrrael Hendrickson DO. Coding Level of Care Code ED Washing Machine Repairer for Chg Fwd Documented by User: Isrrael Hendrickson DO 06/16/24 09:21 HPI - Abdominal Pain 2 General: Chief Complaint: Abdominal Pain Stated Complaint: low left abd pain n/v dizzy 2+days Time Seen by Provider: 06/16/24 05:20 PFSH ED 2 PFSH: Medical History Depressed Family history of [place]'s disease Hypothyroidism History of esophageal stricture Surgical History No history of previous surgery Family History Mother Nicanor's chorea Denies family history of Diabetes Cancer Hypertension Stroke Social History Smoking and tobacco/nicotine status: never used tobacco/nicotine Alcohol intake: never Substance/Drug Use: never Household members: family Marital status: Single Number of children: 0 Current occupational status: unemployed Leisure activites: [employer] Snow/Faith: Holiness Special snow needs: No Agree to transfusion: Yes Course 2 Vital Signs: Vital signs: Vital Signs Temperature 98.1 F 06/16/24 05:21 Pulse Rate 61 06/16/24 06:24 Respiratory Rate 16 06/16/24 05:21 Blood Pressure 99/73 06/16/24 08:00 Pulse Oximetry 100 06/16/24 09:00 Oxygen Delivery Me thod Room Air 06/16/24 06:24 MDM - Abdominal Pain Medical Decision Making Care assumed at change of shift on repeat exam has persistent left and left lower abdominal discomfort. Labs reviewed no leukocytosis no sign of cystitis her urine did show RBCs but pt is having menses. CT ordered showed fecalization in the small bowel. Discharge home with lactulose for immediate relief of constipation. MiraLAX is a half a capful twice a day to relieve long-term constipation issues and follow-up with primary care return if his further problems Lab Data 06/16/24 05:58 06/16/24 05:58 Labs/Radiology: Radiology Impressions Abdomen X-Ray 06/16/24 05:24 IMPRESSION: No acute findings with the above details. Abdomen/Pelvis CT 06/16/24 08:04 IMPRESSION: 1. No acute findings. 2. Moderate to severe colonic stool burden with fecalization of small bowel which can be seen in slow transit. Laboratory Results WBC 10.06 10^3/uL (3.29-11.43) 06/16/24 05:58 RBC 4.80 10^6/uL (3.85-5.65) 06/16/24 05:58 Hgb 14.30 g/dL (11.27-16.99) 06/16/24 05:58 Hct 43.7 % (36-47) 06/16/24 05:58 MCV 91.0 fl (85-98) 06/16/24 05:58 MCH 29.8 pg (27-33) 06/16/24 05:58 MCHC 32.7 g/dL (30-55) 06/16/24 05:58 RDW 11.3 % (12.1-15.1) L 06/16/24 05:58 Plt Count 319 10^3/cmm (157-399) 06/16/24 05:58 MPV 10.6 fL (7.4-10.4) H 06/16/24 05:58 Neut % (Auto) 82.8 % 06/16/24 05:58 Lymph % (Auto) 12.9 % 06/16/24 05:58 Holt % (Auto) 3.1 % 06/16/24 05:58 Eos % (Auto) 0.4 % 06/16/24 05:58 Baso % (Auto) 0.6 % 06/16/24 05:58 Neut # (Auto) 8.33 10^3/uL (1.8-7.7) H 06/16/24 05:58 Lymph # (Auto) 1.3 10^3/uL (0.8-4.8) 06/16/24 05:58 Holt # (Auto) 0.3 10^3/uL (0.2-0.9) 06/16/24 05:58 Eos # (Auto) 0.0 10^3/uL (0.0-0.8) 06/16/24 05:58 Baso # (Auto) 0.1 10^3/uL (0.0-0.1) 06/16/24 05:58 Nucleated RBC % (auto) 0 % 06/16/24 05:58 Nucleated RBCs # 0.0 /100WBC 06/16/24 05:58 Sodium 140 mmol/L (136-145) 06/16/24 05:58 Potassium 4.5 mmol/L (3.5-5.1) 06/16/24 05:58 Chloride 104 mmol/L (98-107) 06/16/24 05:58 Carbon Dioxide 23 mmol/L (22-29) 06/16/24 05:58 Anion Gap 17.5 (5-19) 06/16/24 05:58 BUN 12 mg/dL (6-20) 06/16/24 05:58 Creatinine 1.0 mg/dL (0.5-0.9) H 06/16/24 05:58 GFR Calculation 68.1 mL/min (90-130) L 06/16/24 05:58 Glucose 105 mg/dL (65-115) 06/16/24 05:58 Calculated Osmolality 290 mOsm/kg (285-295) 06/16/24 05:58 Calcium 8.9 mg/dL (8.5-10.5) 06/16/24 05:58 Magnesium 2.2 mg/dL (1.7-2.3) 06/16/24 05:58 Total Bilirubin 0.3 mg/dL (0.15-1.2) 06/16/24 05:58 AST 13 U/L (0-32) 06/16/24 05:58 ALT 9 U/L (0-33) 06/16/24 05:58 Alkaline Phosphatase 75 U/L (35-105) 06/16/24 05:58 Total Protein 7.8 g/dL (6.6-8.7) 06/16/24 05:58 Albumin 4.4 g/dL (3.5-5.2) 06/16/24 05:58 Globulin 3.4 g/dL (1.3-4.6) 06/16/24 05:58 HCG, Qual Negative (Negative) 06/16/24 05:50 Urine Color Dark yellow (Yellow) A 06/16/24 05:50 Urine Appearance Clear (CLEAR) 06/16/24 05:50 Urine pH 5.0 (5-7) 06/16/24 05:50 Ur Specific [place] 1.022 (1.005-1.030) 06/16/24 05:50 Urine Protein Trace (Negative) A 06/16/24 05:50 Urine Glucose (UA) Negative (Normal) 06/16/24 05:50 Urine Ketones Trace (Negative) 06/16/24 05:50 Urine Blood 3+ (Negative) A 06/16/24 05:50 Urine Nitrate Negative (Negative) 06/16/24 05:50 Urine Bilirubin Negative (Negative) 06/16/24 05:50 Urine Urobilinogen 1.0 mg/dL (Negative) 06/16/24 05:50 Ur Leukocyte Esterase Negative (Negative) 06/16/24 05:50 Urine RBC 6-10 /hpf (0-2) 06/16/24 05:50 Urine WBC 6-10 /hpf (0-5) 06/16/24 05:50 Ur Squamous Epith Cells 21-50 /hpf (0-5) 06/16/24 05:50 Amorphous Sediment Not Reportable 06/16/24 05:50 Urine Bacteria Trace /hpf (NONE) 06/16/24 05:50 Hyaline Casts 2.87 /lpf 06/16/24 05:50 Discharge Plan Discharge Patient Disposition: Home Clinical Impression: Constipation Condition: Stable Prescriptions: New Miralax 17 gram/dose powder 8.5 g PO BID Qty: 850 0RF Constulose 10 gram/15 mL solution 20 g PO Q2H 1 Days Qty: 360 0RF Rx Instructions: until desired laxative effect No Action Synthroid 25 mcg tablet 25 mcg PO DAILY Qty: 90 0RF Discharge Orders: Discharge ED (Routine); Ordered 06/16/24 Ordered By: Isrrael Hendrickson Referrals: Melissa Cameron MD [Primary Care Provider] - Discharge Diet: Usual diet Discharge Activity: Increase activity as tolerated Patient Instructions: Constipation (ED), Opioid Safety, Pain Management Activity Restrictions/Additional Instructions: Thank you for choosing [facility] for your healthcare needs today. It is very important that you follow up as instructed or that you return to the Emergency Department should you have concerns or if your condition changes or worsens in any way. Sign Out Sign Out Data: Patient Sign Out occurred on 06/16/24 at 06:24. Patient's care was discussed, and care was transferred from Danny Herrera DO to Isrrael Hendrickson DO. Coding Level of Care Code ED Washing Machine Repairer for Kathie Cook
[2024-06-16 05:56] LABS: HCG Qualitative Urine. Negative (Negative)
[2024-06-16 05:58] LABS: Charge for UA Resulting for Rev
[2024-06-16 06:01] LABS: Bilirubin Urine Negative (Negative); Blood Urine 3+ (Negative); Glucose Urine UA Negative (Normal); Ketones Urine Trace (Negative); Leukocyte Esterase Urine Negative (Negative); Nitrate Urine Negative (Negative); Protein Urine Trace (Negative); Specific Gravity, Urine 1.022 (1.005-1.030); Urine Appearance Clear (CLEAR); Urine Color Dark Yellow (Yellow)
[2024-06-16] MEDS: ondansetron 4 MG Tablet PO (06:01)
[2024-06-16 06:06] LABS: Bacteria Urine Trace /hpf; Hyaline Casts Urine 2.87 /lpf; Squamous Epithelial Cell Urine 21-50 /hpf (0-5)
[2024-06-16 06:21] LABS: Basophils # 0.1 10^3/uL (0.0-0.1); Basophils % 0.6 %; Eosinophils % 0.4 %; Hematocrit 43.7 % (36-47); Lymphocytes # 1.3 10^3/uL (0.8-4.8); Lymphocytes % 12.9 %; Mean Corpuscular HGB Conc 32.7 g/dL (30-55); Mean Corpuscular Hemoglobin 29.8 pg (27-33); Mean Platelet Volume 10.6 fL (7.4-10.4); Monocytes # 0.3 10^3/uL (0.2-0.9); Monocytes % 3.1 %; Neutrophils # 8.33 10^3/uL (1.8-7.7); Neutrophils % 82.8 %; Nucleated Red Blood Cells % 0 %; Platelet Count 319 10^3/cmm (157-399); Red Cell Distribution Width 11.3 % (12.1-15.1); White Blood Count 10.06 10^3/uL (3.29-11.43)
[2024-06-16 06:22] LABS: Add Urine Culture? No
[2024-06-16 06:36] LABS: Alanine Aminotransferase 9 U/L (0-33); Albumin Level 4.4 g/dL (3.5-5.2); Alkaline Phosphatase 75 U/L (35-105); Anion Gap 17.5 (5-19); Aspartate Amino Transferase 13 U/L (0-32); Blood Urea Nitrogen 12 mg/dL (6-20); Calcium 8.9 mg/dL (8.5-10.5); Carbon Dioxide 23 mmol/L (22-29); Chloride 104 mmol/L (98-107); Creatinine Clr Calc Pharmacy 52.7989; Globulin 3.4 g/dL (1.3-4.6); Glomerular Filtration Rate 68.1 mL/min (90-130); Glucose 105 mg/dL (65-115); Magnesium 2.2 mg/dL (1.7-2.3); Osmolality Calculated 290 mOsm/kg (285-295); Potassium 4.5 mmol/L (3.5-5.1); Sodium 140 mmol/L (136-145); Total Bilirubin 0.3 mg/dL (0.15-1.2); Total Protein 7.8 g/dL (6.6-8.7)
--- NOTE | 2024-06-16 08:04 | CTR_ITS ---
PROCEDURE INFORMATION: Exam: CT Abdomen And Pelvis With Contrast Exam date and time: 06/16/2024 8:22 AM Age: 24 years old Clinical indication: Abdominal pain; Localized; Left lower quadrant (llq); Additional info: Abd pain TECHNIQUE: Imaging protocol: Computed tomography of the abdomen and pelvis with contrast. Radiation optimization: All CT scans at this facility use at least one of these dose optimization techniques: automated exposure control; mA and/or kV adjustment per patient size (includes targeted exams where dose is matched to clinical indication); or iterative reconstruction. Contrast material: OMNI 350; Contrast volume: 75 ml; Contrast route: INTRAVENOUS (IV); COMPARISON: CR XR abdomen 1V* [id number] 06/16/2024 6:32 AM RADIATION DOSE METRICS: Total DLP (mGy-cm): 310.79 FINDINGS: Lungs: Lung bases are clear as visualized. Heart: Base of heart is unremarkable as visualized. Liver: Small ill-defined hypodensity within the anterior right hepatic lobe, too small to characterize by modality, statistically likely to represent benign etiology. Gallbladder and biliary ducts: Normal. No calcified stones. No ductal dilation. Pancreas: Normal. No ductal dilation. Spleen: Normal. No splenomegaly. Adrenal glands: Normal. No mass. Kidneys and ureters: Normal. No hydronephrosis. Stomach and bowel: Moderate to severe colonic stool burden. Fecalization of small bowel. Appendix: No evidence of appendicitis. Intraperitoneal space: Unremarkable. No free air. No significant fluid collection. Vasculature: Unremarkable. No abdominal aortic aneurysm. Lymph nodes: Unremarkable. No enlarged lymph nodes. Urinary bladder: Unremarkable as visualized. Reproductive: Unremarkable as visualized. Bones/joints: Unremarkable. No acute fracture. Soft tissues: Unremarkable. CT/CT abdomen pelvis w con* [id number] IMPRESSION: 1. No acute findings. 2. Moderate to severe colonic stool burden with fecalization of small bowel which can be seen in slow transit.
[2024-06-16] MEDS: iohexol 350 mg/mL 500 mL Btl (per mL) IV (08:25)
== END 2024-06-16 10:21 | disposition home or self-care (01) ==
PROVIDERS: Emergency Medicine; Emergency Provider Family Medicine; PCP Family Medicine
DX: K59.00 Constipation, unspecified (principal)
CPT/HCPCS: 36415; 74018; 74177; 80053; 81003; 81015; 81025; 83735; 85025; 99285; Q0162; Q9967

== ENCOUNTER → 2024-08-15 13:51 | Outpatient (BNVA) | payer MEDICAID, SELFPAY | PROVIDERS: PCP Family Medicine; Visit Provider Family Medicine | DX: E03.9 Hypothyroidism, unspecified (principal) | CPT/HCPCS: 84439; 84443 ==

== ENCOUNTER 2025-02-07 16:53 | Emergency (ER) | payer MEDICAID, SELFPAY ==
[2025-02-07 17:00] VITALS: BP 98/73; PULSE 91; RESP 15; TEMP 37.1; O2SAT 99; BMI 15.1
--- NOTE | 2025-02-07 17:30 | XRR_ITS ---
PROCEDURE INFORMATION: Exam: XR Right Foot Exam date and time: 02/07/2025 5:34 PM Age: 24 years old Clinical indication: Foot; Right; RT great toe pain/swelling/infection after bumping it TECHNIQUE: Imaging protocol: Radiologic exam of the right foot. Views: 3 or more views. COMPARISON: No relevant prior studies available. FINDINGS: Bones/joints: Normal. Soft tissues: Normal. XR/XR foot RT min 3V* [id number] IMPRESSION: No acute findings.
--- NOTE | 2025-02-07 17:42 | ED_ITS ---
HPI - Extremity Problem General: Chief complaint: Extremity Injury, Lower Stated complaint: infected toe right foot Time Seen by Provider: 02/07/25 17:14 Source: patient Mode of arrival: ambulatory Limitations: no limitations History of Present Illness: Patient is a 24-year-old female who presents to the emergency department for pain to right great toe. A month ago was diagnosed with what appears to be paronychia was started on Keflex and father notes in the room that had seem to be improving. However she accidentally bumped the toe on his boot couple days ago and has worsened since. He noticed that it was swollen and bruised today when they were going into the basement for [employer], they tried to call the PCP for more antibiotics but were unable to get a hold of them. Patient took s ome ibuprofen for the pain, she is calm and cooperative at this time. Does have a history of hypothyroidism. No fever, nausea or vomiting. No red streaking of the foot, has still been ambulatory. MD Complaint: extremity pain Onset (ago): day(s) Pain Consistency: constant Location: right and toe Radiation: proximal Exacerbating factors: range of motion and weight bearing Associated symptoms: Deny chest pain, fever(s) or rash Context: other (recent infection to same toe) Related Data Previous Rx's ?Medication ?Instructions ?Recorded cephalexin 250 mg/5 mL oral 250 mg (5 mL) PO BID 7 day s #70 mL 01/07/25 suspension levothyroxine 25 mcg tablet 25 mcg PO DAILY #90 tabs 0 02/06/25 (Synthroid) sulfamethoxazole 800 2 tab PO DAILY 7 days #14 ta bs 02/07/25 mg-trimethoprim 160 mg tablet (Bactrim DS) Allergies Allergy/AdvReac Type Severity Reaction Status Date / Time No Known Allergies Allergy Verified 01/07/25 12:12 Review of Systems General: Reports: 10 or more systems reviewed and unremarkable except in HPI and below Const: Denies: fever(s) or chills Card: Denies: chest pain Resp: Denies: dyspnea or productive cough GI: Denies: abdominal pain, nausea, vomiting or diarrhea : Denies: flank pain Musc: Reports: extremity pain (right great toe) and extremity swelling (right great toe); Denies: neck pain, back pain, joint pain, joint swelling, joint redness, joint warmth, limited range of motion or muscle weakness Skin/Breast: Denies: rash Neuro: Denies: headache(s), numbness in extremities or weakness in extremities PFSH ED PFSH: Medical History Depressed Family history of Nicanor's disease Hypothyroidism History of esophageal stricture Surgical History No history of previous surgery Family History Mother [place]'s chorea Denies family history of Diabetes Cancer Hypertension Stroke Social History Smoking and tobacco/nicotine status: never used tobacco/nicotine Alcohol intake: never Substance/Drug Use: never Household members: family Marital status: Single Number of children: 0 Current occupational status: unemployed Leisure activites: [employer] Snow/Mandaeism: Religion Special snow needs: No Agree to transfusion: Yes Physical Exam Const: COMMON NORMALS: no acute distress, patient oriented x3, no limitations, healthy appearing, alert and well nourished HENMT: COMMON NORMALS: normocephalic and atraumatic HEAD & SCALP: normocephalic and atraumatic Neck/C-Spine: COMMON NORMALS: full ROM, supple and no meningeal signs Resp: COMMON NORMALS: normal respiratory effort, No use of accessory muscles and clear to auscultation bilaterally AUSCULTATION: clear to auscultation bilaterally Cardio: COMMON NORMALS: regular rate and regular rhythm RATE: regular rate RHYTHM: regular rhythm Extremity: COMMON NORMALS: full ROM, capillary refill normal and no clubbing, cyanosis or edema NARRATIVE EXTREMITY EXAM: distal NV exam intact Neuro: COMMON NORMALS: patient oriented x3, moves all extremities, no focal motor deficits and no sensory deficits noted SENSORIUM/ORIENTATION: Yes alert MENINGEAL SIGNS: Yes no meningeal signs Skin: NARRATIVE SKIN EXAM: Swelling and bruising noted to cuticle of right great toe. No fluctuance or other signs of abscess. Mild amount of dried blood noted to proximal right cuticle. Course Vital Signs: Vital signs: Vital Signs Temperature 98.7 F 02/07/25 17:00 Pulse Rate 91 02/07/25 17:00 Respiratory Rate 15 02/07/25 17:00 Blood Pressure 98/73 02/07/25 17:00 Pulse Oximetry 99 02/07/25 17:00 Oxygen Delivery Me thod Room Air 02/07/25 17:00 MDM - Extremity (Nontraumatic) Medical Decision Making Patient presenting with right toe pain, there was infection a month ago treated with Keflex to have been getting better but she reinjured it couple days ago when she jammed it into her dad's boot. X-ray was normal here, there is no drainable abscess present but did have some signs of infection that we will treat with Bactrim this time. Also with wound care data noted that they were applying topical Neosporin and covering, encouraged him to keep the area open to dry and normal cleaning with warm soap and water. Discharged home in stable condition. Lab Data Radiology Impressions Foot X-Ray 02/07/25 17:30 IMPRESSION: No acute findings. All radiology interpretation(s) finalized by discharge Discharge Plan Discharge Patient Disposition: Home Clinical Impression: Paronychia Condition: Stable Prescriptions: New sulfamethoxazole-trimethoprim [Bactrim DS] 800-160 mg tablet 2 tab PO DAILY 7 Days Qty: 14 0RF No Action cephalexin 250 mg/5 mL suspension for reconstitution 250 mg PO BID 7 Days Qty: 70 0RF Synthroid 25 mcg tablet 25 mcg PO DAILY Qty: 90 1RF Discharge Orders: Discharge ED (Routine); Ordered 02/07/25 Ordered By: Ralph Mock Referrals: Melissa Cameron MD [Primary Care Provider] - Patient Instructions: Paronychia (ED) Activity Restrictions/Additional Instructions: Take the antibiotics as prescribed. Wound care as we discussed. If infection seems to get worse or is not improving please follow-up with your regular doctor for reevaluation. With any fever, vomiting, or other signs of systemic illness please return to the ED. Print Language: [place]an Coding Level of Care Code ED Log Preparer for Kathie Cook
== END 2025-02-07 18:25 | disposition home or self-care (01) ==
PROVIDERS: Emergency Provider Physician Assistant; PCP Family Medicine
DX: L03.031 Cellulitis of right toe (principal)
CPT/HCPCS: 73630; 99283